=== PATIENT | female | born 1995 | race Caucasian/White ===

== ENCOUNTER → 2019-11-14 | Outpatient (REF) | payer OTHER ==
[2019-11-14 19:24] LABS: APPEARANCE, URINE HAZY (CLEAR); BACTERIA, URINE AUTO NEGATIVE (NEGATIVE); BILIRUBIN, URINE AUTO NEGATIVE (NEGATIVE); BLOOD, URINE BLOOD NEGATIVE (NEGATIVE); COLOR, URINE YELLOW (YELLOW); GLUCOSE, URINE (UA) AUTO NEGATIVE (NEGATIVE); KETONE, URINE AUTO NEGATIVE (NEGATIVE); LEUKOCYTE ESTERASE, URINE AUTO NEGATIVE (NEGATIVE); MUCUS, URINE SMALL (NEGATIVE); NITRITE, URINE AUTO NEGATIVE (NEGATIVE); PROTEIN, URINE AUTO NEGATIVE (NEGATIVE); RBC, URINE AUTO 0 /HPF (0-3); SQUAMOUS EPITHELIAL CELL UR AU 17 /HPF (0-6); UROBILINOGEN, URINE AUTO 0.2 mg/dL (0.0-2.0); WBC, URINE AUTO 1 /HPF (0-3)
== END ==
LOC: M SMT 18:09
PROVIDERS: ATTEND Nurse Practitioner Women's Health
DX: R39.15 Urgency of urination (principal)

== ENCOUNTER 2020-03-31 08:16 | Emergency (ER) | payer OTHER ==
[~2020-03-31] VITALS: Ht 165.1 cm; Wt 98.4 kg
[2020-03-31] MEDS ORDERED: SUMA50TA2 (08:23)
[2020-03-31] MEDS ORDERED: METO10TA2 (08:23)
[2020-03-31] MEDS ORDERED: METOCLOPRAMIDE INJ 10MG/2ML VIAL (J2765 PER 1) IV ONE (08:45)
[2020-03-31] MEDS ORDERED: ACETAMINOPHEN 500 MG TAB PO ONE (08:45)
[2020-03-31] MEDS ORDERED: KETOROLAC 30 MG/ML 1ML VIAL IV ONE (08:45)
[2020-03-31] MEDS ORDERED: NS 1,000 ML IV ONE (08:45)
[2020-03-31 09:12] LABS: BASO # 0.1 10^3/uL (0.0-0.2); BASO % 0.7 % (0.0-1.0); EOS # 0.1 10^3/uL (0.0-0.5); EOS % 0.8 % (0.0-3.0); HEMATOCRIT 38.5 % (36.0-47.0); HEMOGLOBIN 12.8 g/dl (12.0-15.5); LYMPH # 1.6 10^3/uL (1.5-5.0); LYMPH % 13.5 % (24.0-44.0); MEAN CORPUSCULAR HEMOGLOBIN 29.4 pg (27.0-33.0); MEAN CORPUSCULAR HGB CONC 33.2 g/dl (32.0-36.5); MEAN CORPUSCULAR VOLUME 88.5 fl (80.0-96.0); MONO # 0.8 10^3/uL (0.0-0.8); MONO % 7.1 % (0.0-5.0); NEUTROPHILS # 9.2 10^3/uL (1.5-8.5); NEUTROPHILS % 77.5 % (36.0-66.0); PLATELET COUNT, AUTOMATED 328 10^3/uL (150-450); RED BLOOD COUNT 4.35 10^6/uL (4.00-5.40); WHITE BLOOD COUNT 11.9 10^3/uL (4.0-10.0)
[2020-03-31 09:33] LABS: ALBUMIN 3.5 GM/DL (3.2-5.2); ALT/SGPT 21 U/L (12-78); BILIRUBIN,DIRECT 0.1 MG/DL (0.0-0.2); BILIRUBIN,TOTAL 0.4 MG/DL (0.2-1.0); BLOOD UREA NITROGEN 7 MG/DL (7-18); CALCIUM LEVEL 9.6 MG/DL (8.5-10.1); CARBON DIOXIDE LEVEL 26 MEQ/L (21-32); CHLORIDE LEVEL 109 MEQ/L (98-107); CREATININE FOR GFR 0.67 MG/DL (0.55-1.30); GLOMERULAR FILTRATION RATE > 60.0 (>60); GLUCOSE, FASTING 89 MG/DL (70-100); LIPASE 81 U/L (73-393); POTASSIUM SERUM 4.1 MEQ/L (3.5-5.1); SODIUM LEVEL 141 MEQ/L (136-145); TOTAL PROTEIN 6.5 GM/DL (6.4-8.2)
[2020-03-31] MEDS ORDERED: ISOVUE-370 76% 100ML VIAL As Ordered ONE (09:42)
--- NOTE | 2020-03-31 10:18 | REPVR ---
PROCEDURE INFORMATION: Exam: CT Abdomen And Pelvis With Contrast Exam date and time: 03/31/2020 9:49 AM Age: 24 years old Clinical indication: Abdominal pain; Localized; Lower; Additional info: Lower abd pain with n/v TECHNIQUE: Imaging protocol: Computed tomography of the abdomen and pelvis with intravenous contrast. Radiation optimization: All CT scans at this facility use at least one of these dose optimization techniques: automated exposure control; mA and/or kV adjustment per patient size (includes targeted exams where dose is matched to clinical indication); or iterative reconstruction. Contrast material: ISOVUE 370; Contrast volume: 100 ml; Contrast route: INTRAVENOUS (IV); COMPARISON: No relevant prior studies available. FINDINGS: Lungs: Bilateral dependent atelectasis. Liver: Hepatomegaly. Gallbladder and bile ducts: Status post cholecystectomy. Pancreas: Normal. No ductal dilation. Spleen: Normal. No splenomegaly. Adrenals: Normal. No mass. Kidneys and ureters: Normal. No hydronephrosis. Stomach and bowel: Unremarkable. No obstruction. No mucosal thickening. Appendix: No evidence of appendicitis. Intraperitoneal space: Trace free fluid in the pelvis. Vasculature: Unremarkable. No abdominal aortic aneurysm. Lymph nodes: Scattered subcentimeter retroperitoneal lymph nodes. Bladder: Urinary bladder wall thickening and mild perivesical fat stranding. Correlate with urinalysis for evidence of cystitis. Reproductive: Heterogeneously enlarged bilateral adnexa. Complex 3 x 1.7 cm right ovarian cyst. Suggest further characterization pelvic ultrasound. Bones/joints: Unremarkable. No acute fracture. Soft tissues: Unremarkable. IMPRESSION: Heterogeneously enlarged bilateral adnexa. Complex 3 x 1.7 cm right ovarian cyst. Suggest further characterization pelvic ultrasound. Urinary bladder wall thickening and mild perivesical fat stranding. Correlate with urinalysis for evidence of cystitis. Electronically signed by: Ankit Jeong On 03/31/2020 10:18:17 AM
--- NOTE | 2020-03-31 11:27 | REPVR ---
PROCEDURE INFORMATION: Exam: US Pelvis Complete, Transabdominal and US Pelvis, Transvaginal and US Duplex Artery and Vein, Ovaries, Complete Exam date and time: 03/31/2020 11:15 AM Age: 24 years old Clinical indication: Condition or disease; Ovarian conditions; Cyst; Additional info: Ovarian cyst R/O torsion TECHNIQUE: Imaging protocol: Real-time transabdominal and transvaginal pelvic ultrasound (complete) with image documentation. Transvaginal imaging was used for better evaluation of the endometrium and adnexa. Real-time duplex ultrasound scan of the arterial and venous flow of the ovaries with B-mode, color Doppler flow and spectral waveform analysis. COMPARISON: CT ABD/PEL W/IV CONTRAST ONLY 03/31/2020 9:45 AM FINDINGS: Uterus/cervix: The uterus measures 8.8 x 3.7 x 5.6 cm transabdominally and 9.2 x 4.1 x 5.9 cm transvaginally. It is homogeneous in echotexture, without demonstrated lesion. The endometrium measures 3.9 mm in thickness. Right adnexa: The right ovary measures 3.7 x 4.8 x 2.6 cm transabdominally and 2.6 x 4.2 x 2.4 cm, as best visualized transvaginally. It contains a 2.4 x 2.1 x 1.4 cm simple cyst. There is normal internal arterial and venous flow. Peak systolic velocity 18.6 cm/s, end-diastolic velocity 9.8 cm/s, resistive index 0.47. Left adnexa: The left ovary measures 3.1 x 4.1 x 2.2 cm transabdominally and 2.7 x 2.0 x 2.6 cm transvaginally. It contains small follicles but otherwise appears unremarkable. There is normal internal arterial and venous flow. Peak systolic velocity 13.2 cm/s, end-diastolic velocity 3.9 cm/s, resistive index 0.70. Intraperitoneal space: Moderate free fluid is present in the cul-de-sac. Bladder: The urinary bladder measures 8.1 x 7.1 x 8.3 cm, and contains small debris. IMPRESSION: 1. 2.4 cm simple right ovarian cyst. 2. Small left ovarian follicles. 3. Normal internal flow to both ovaries without torsion. 4. Moderate free fluid. 5. Unremarkable uterus. 6. Small debris in the urinary bladder, nonspecific. Electronically signed by: Dion Schreiber On 03/31/2020 11:27:01 AM
[2020-03-31] MEDS ORDERED: KEFL500C17 PO (11:38)
[2020-03-31] MEDS ORDERED: ONDA4TAB6 PO (11:38)
[2020-03-31 11:55] VITALS: BP 122/79
--- NOTE | 2020-04-03 09:14 | ED PDOC ---
Post-Departure Follow-Up radiology report faxed to carrie Ortiz Sarah MD Apr 03, 2020 09:14
== END 2020-03-31 12:00 | disposition home or self-care (01) ==
LOC: M ED 08:16
DX: N39.0 Urinary tract infection, site not specified (principal); N83.201 Unspecified ovarian cyst, right side; R11.2 Nausea with vomiting, unspecified; J45.909 Unspecified asthma, uncomplicated
CPT/HCPCS: 74177; 76830; 76856; 80048; 80076; 81001; 83690; 84702; 85025; 87088; 87186; 93976; 96361; 96374; 96375; 99284; J1885; J2765; Q9967